=== PATIENT | female | born 1985 | race Asian ===

== ENCOUNTER 2017-05-30 14:51 | Emergency (ER) | payer MEDICAID ==
[~2017-05-30] VITALS: Ht 167.6 cm; Wt 68.0 kg
[~2017-05-30 14:51] MED LIST: ACET-2178 PO; CHOL500010 PO; CLAR10 PO; CLON0.5T PO; DOCU-138 PO; ESCI20TA PO; GABA600T PO; ILOP2TAB2 PO; MAGNESIUM HYDROXIDE PO; MULT-1146 PO; NASOI NS; PHEN473S12 PO; RANI150T12 PO; TRAZ-132 PO; VIST25 PO
[2017-05-30 14:53] VITALS: BP 123/76
[2017-05-30] MEDS ORDERED: TRAZ-132 PO (15:00)
[2017-05-30] MEDS ORDERED: CHLO1LIQ2 MC (15:00)
== END 2017-05-30 22:28 | disposition home or self-care (01) ==
LOC: ER 19:27
DX: T17.1XXA Foreign body in nostril, initial encounter (principal); G80.9 Cerebral palsy, unspecified; X58.XXXA Exposure to other specified factors, initial encounter; Y93.89 Activity, other specified; Y92.89 Other specified places as the place of occurrence of the external cause; Y99.8 Other external cause status
CPT/HCPCS: 99284; Z7610

== ENCOUNTER 2017-07-24 10:32 | Emergency (ER) | payer MEDICAID ==
[~2017-07-24] VITALS: Ht 167.6 cm; Wt 66.0 kg
[~2017-07-24 10:32] MED LIST changes: +CHLO1LIQ2 MC
[2017-07-24 10:40] VITALS: BP 126/71
== END 2017-07-24 13:52 | disposition home or self-care (01) ==
LOC: ER 11:09
DX: J18.9 Pneumonia, unspecified organism (principal); Z79.899 Other long term (current) drug therapy
CPT/HCPCS: 71010; 99283

== ENCOUNTER 2017-09-30 11:02 | Emergency (ER) | payer MEDICAID ==
[~2017-09-30] VITALS: Ht 157.5 cm; Wt 69.2 kg
[2017-09-30 11:46] VITALS: BP 109/82
== END 2017-09-30 15:04 | disposition left against medical advice (07) ==
LOC: ER 11:56
DX: Z53.21 Procedure and treatment not carried out due to patient leaving prior to being seen by health care provider (principal)

== ENCOUNTER 2019-07-07 15:32 | Emergency (ER) | payer MEDICAID ==
[~2019-07-07] VITALS: Ht 167.6 cm; Wt 77.0 kg
[~2019-07-07 15:32] MED LIST changes: -ACET-2178 PO; +RANI-655 PO; -RANI150T12 PO; +TOPUD PO; -TRAZ-132 PO; +TRAZ-213 PO
[2019-07-07 16:02] VITALS: BP 113/79
[2019-07-07] MEDS ORDERED: BACITRACIN ZINC OINT UDPKT TOP ONE (17:00)
== END 2019-07-07 17:41 | disposition home or self-care (01) ==
LOC: ER 15:32
DX: Z48.01 Encounter for change or removal of surgical wound dressing (principal); S50.819D Abrasion of unspecified forearm, subsequent encounter; X58.XXXD Exposure to other specified factors, subsequent encounter; F79 Unspecified intellectual disabilities; R56.9 Unspecified convulsions; G80.9 Cerebral palsy, unspecified; Z94.5 Skin transplant status
CPT/HCPCS: 99282